=== PATIENT | female | born 2000 | race Hispanic/Latino ===

== ENCOUNTER 2024-06-27 17:59 | Emergency (ER) | payer OTHER ==
[~2024-06-27] VITALS: Ht 165.1 cm; Wt 77.0 kg
[2024-06-27] MEDS ORDERED: MIRA3350 PO (18:14)
[2024-06-27] MEDS ORDERED: MULTTAB20 PO (18:14)
[2024-06-27 19:21] LABS: BASO % 0.4 % (0.0-1.0); EOS # 0.1 10^3/uL (0.0-0.5); EOS % 0.6 % (0.0-3.0); HEMATOCRIT 35.3 % (36.0-47.0); HEMOGLOBIN 12.3 g/dl (12.0-15.5); LYMPH # 1.8 10^3/uL (1.5-5.0); LYMPH % 21.5 % (24.0-44.0); MEAN CORPUSCULAR HEMOGLOBIN 32.3 pg (27.0-33.0); MEAN CORPUSCULAR HGB CONC 34.8 g/dl (32.0-36.5); MEAN CORPUSCULAR VOLUME 92.7 fl (80.0-96.0); MONO # 0.5 10^3/uL (0.0-0.8); MONO % 5.7 % (2.0-8.0); NEUTROPHILS % 71.6 % (36.0-66.0); PLATELET COUNT, AUTOMATED 290 10^3/uL (150-450); RED BLOOD COUNT 3.81 10^6/uL (4.00-5.40); WHITE BLOOD COUNT 8.4 10^3/uL (4.0-10.0)
[2024-06-27 19:52] LABS: LIPASE 35 U/L (12-53)
[2024-06-27 19:55] LABS: ALBUMIN 4.5 G/DL (3.2-5.2); ALKALINE PHOSPHATASE 54 U/L (46-116); ALT/SGPT 24 U/L (7.0-40); AST/SGOT 14 U/L (<34); BILIRUBIN,DIRECT 0.2 MG/DL (<0.4); BILIRUBIN,TOTAL 0.7 MG/DL (0.3-1.2); BLOOD UREA NITROGEN 6 MG/DL (9-23); CALCIUM LEVEL 10.3 MG/DL (8.5-10.1); CARBON DIOXIDE LEVEL 23 MMOL/L (20-31); CHLORIDE LEVEL 105 MMOL/L (98-107); CREATININE FOR GFR 0.54 MG/DL (0.55-1.30); GLOMERULAR FILTRATION RATE > 60.0 (>60); GLUCOSE, FASTING 86 MG/DL (60-100); POTASSIUM SERUM 4.4 MMOL/L (3.5-5.1); SODIUM LEVEL 135 MMOL/L (136-145); TOTAL PROTEIN 7.9 G/DL (5.7-8.2)
[2024-06-27 20:23] LABS: HCG, SERUM QUANTITATIVE 146466.3 MIU/ML (<4.2)
[2024-06-27 22:01] VITALS: BP 138/68; TEMP 97.7; O2SAT 100
[2024-06-28] MEDS: ACETAMINOPHEN TAB 650MG DOSE (2X325MG) PO ONE (01:56)
== END 2024-06-28 02:05 | disposition home or self-care (01) ==
LOC: M ED 17:59
DX: O99.891 Other specified diseases and conditions complicating pregnancy (principal); R10.30 Lower abdominal pain, unspecified; Z3A.09 9 weeks gestation of pregnancy

== ENCOUNTER 2024-12-05 13:50 | Outpatient (CLI) | payer OTHER ==
[~2024-12-05] VITALS: Ht 165.1 cm; Wt 85.9 kg
[2024-12-05 13:50] VITALS: BP 119/51; O2SAT 98
[~2024-12-05 13:50] MED LIST: ALBUTEROL SULFATE 2.5MG/0.5ML INH NEB SOLN INH PRN; EPINEPHrine INJ 1 MG/ML 1ML AMP IM PRN; MIRA3350 PO; MULTTAB20 PO; diphenhydrAMINE 50MG/ML VIAL IV PRN; methylPREDNISolone 125MG 2ML VIAL IV PRN
[2024-12-05] MEDS: IRON SUCROSE 300 MG in NS 250 ML OVER 90 MIN. IV ONE (14:24)
[2024-12-05 16:02] VITALS: BP 1/56; O2SAT 98
== END 2024-12-05 16:10 ==
LOC: M INFU 13:50
PROVIDERS: ATTEND Obstetrics & Gynecology
DX: D50.1 Sideropenic dysphagia (principal)
CPT/HCPCS: 96365; 96366; J1756

== ENCOUNTER 2024-12-12 13:58 | Outpatient (CLI) | payer OTHER ==
[~2024-12-12] VITALS: Ht 165.1 cm; Wt 85.9 kg
[2024-12-12 14:00] VITALS: BP 119/59; O2SAT 98
[2024-12-12] MEDS: IRON SUCROSE 300 MG in NS 250 ML OVER 90 MIN. IV ONE (14:14)
[2024-12-12 15:45] VITALS: BP 133/60; O2SAT 99
== END 2024-12-12 15:30 ==
LOC: M INFU 13:58
PROVIDERS: ATTEND Obstetrics & Gynecology
DX: D50.1 Sideropenic dysphagia (principal)
CPT/HCPCS: 96365; J1756

== ENCOUNTER 2024-12-19 14:10 | Outpatient (CLI) | payer OTHER ==
[~2024-12-19] VITALS: Ht 165.1 cm; Wt 85.9 kg
[2024-12-19 14:10] VITALS: BP 131/60; O2SAT 99
[2024-12-19] MEDS: IRON SUCROSE 300 MG in NS 250 ML IV ONE (14:16)
[2024-12-19 16:00] VITALS: BP 117/60; O2SAT 100
== END 2024-12-19 16:10 ==
LOC: M INFU 14:10
PROVIDERS: ATTEND Obstetrics & Gynecology
DX: D50.9 Iron deficiency anemia, unspecified (principal)
CPT/HCPCS: 96365; 96366; J1756

== ENCOUNTER → 2025-01-26 | Outpatient (REF) ==
[~2025-01-26] MED LIST changes: -ALBUTEROL SULFATE 2.5MG/0.5ML INH NEB SOLN INH PRN; -EPINEPHrine INJ 1 MG/ML 1ML AMP IM PRN; -diphenhydrAMINE 50MG/ML VIAL IV PRN; -methylPREDNISolone 125MG 2ML VIAL IV PRN
== END ==
LOC: M LAB REF 20:50
DX: Z01.89 Encounter for other specified special examinations (principal)

== ENCOUNTER → 2025-07-24 | Outpatient (CLI) | payer SELFPAY | LOC: M RAD 16:36 | DX: M62.08 Separation of muscle (nontraumatic), other site (principal) ==